=== PATIENT | female | born 1975 | race African-American/Black ===

== ENCOUNTER 2017-07-21 12:25 | Emergency (ER) | payer MEDICAID ==
[~2017-07-21] VITALS: Ht 167.6 cm; Wt 66.0 kg
[2017-07-21] MEDS ORDERED: KETOROLAC 30MG/ML VIAL IV ONE (21:15)
[2017-07-21 22:07] LABS: BASOPHILS % 0.8 % (0.0-2.0); EOSINOPHILS % 1.1 % (0.0-5.0); HEMATOCRIT. 43.7 % (36.0-48.0); HEMOGLOBIN. 14.7 g/dL (12.0-16.0); LYMPHOCYTES % 29.5 % (20.0-50.0); MEAN CORPUSCULAR HEMOGLOBIN 30.4 pg (28.0-32.0); MEAN CORPUSCULAR VOLUME 90.5 fL (81.0-99.0); MONOCYTES % 5.6 % (2.0-8.0); RED BLOOD CELL COUNT 4.83 mill/uL (4.2-5.4); RED CELL DISTRIBUTION WIDTH 13.9 % (11.6-14.6)
[2017-07-21 22:10] LABS: CHLORIDE 104 mEq/L (98-107)
[2017-07-21 22:16] LABS: CARBON DIOXIDE 29 mEq/L (21-32)
[2017-07-21 22:26] LABS: HCG SCREEN NEGATIVE
[2017-07-21 22:42] LABS: MEAN PLATELET VOLUME 10.7 fl (7.4-10.4); PLATELET 179 x1000/uL (130-400)
[2017-07-21 23:38] LABS: CLARITY URINE CLOUDY (CLEAR); COLOR URINE YELLOW (YELLOW); GLUCOSE URINE NEGATIVE (NEGATIVE); KETONES URINE TRACE (NEGATIVE); LEUKOCYTE ESTERASE URINE 2+ (NEGATIVE); NITRITE URINE POSITIVE (NEGATIVE); OCCULT BLOOD URINE NEGATIVE (NEGATIVE); PH URINE 5.5 (4.5-8.0); PROTEIN URINE NEGATIVE (NEGATIVE); SPECIFIC GRAVITY URINE 1.028 (1.005-1.030)
[2017-07-22] MEDS ORDERED: HYDROCODONE/ACETAMINOPHEN 5/325MG TABLET PO ONE (00:30)
[2017-07-22 01:09] VITALS: BP 126/76
== END 2017-07-22 01:11 | disposition home or self-care (01) ==
LOC: ER 18:07
DX: N83.202 Unspecified ovarian cyst, left side (principal); N83.201 Unspecified ovarian cyst, right side; N39.0 Urinary tract infection, site not specified; F17.200 Nicotine dependence, unspecified, uncomplicated
CPT/HCPCS: 36415; 76830; 76856; 80048; 81001; 82962; 84703; 85025; 96374; 99285; J1885; Z7610

== ENCOUNTER 2022-10-29 20:57 | Emergency (ER) | payer MEDICAID ==
[~2022-10-29] VITALS: Ht 167.6 cm; Wt 92.8 kg
[2022-10-29 21:02] VITALS: BP 115/85
== END 2022-10-30 04:00 | disposition left against medical advice (07) ==
LOC: ER 21:54
DX: Z53.21 Procedure and treatment not carried out due to patient leaving prior to being seen by health care provider (principal)
CPT/HCPCS: 93005